=== PATIENT | female | born 2000 | race Two or more races ===

== ENCOUNTER 2021-06-16 23:49 | Emergency (ER) | payer MEDICAID ==
[~2021-06-16] VITALS: Ht 149.9 cm; Wt 77.1 kg
[2021-06-17] MEDS ORDERED: TETANUS-DIPTH-ACEL PERTUSSIS 0.5ML SYR Tdap IM ONE (02:15)
[2021-06-17 03:10] VITALS: BP 120/75
== END 2021-06-17 03:15 | disposition home or self-care (01) ==
LOC: ER 23:49
DX: T24.212A Burn of second degree of left thigh, initial encounter (principal); T24.211A Burn of second degree of right thigh, initial encounter; X10.2XXA Contact with fats and cooking oils, initial encounter; Y93.89 Activity, other specified; Y92.89 Other specified places as the place of occurrence of the external cause; Y99.8 Other external cause status
CPT/HCPCS: 90471; 90715